=== PATIENT | female | born 2000 | race African-American/Black ===

== ENCOUNTER 2018-09-18 18:16 | Emergency (ER) | payer SELFPAY ==
[2018-09-18] MEDS ORDERED: KETOROLAC 60MG/2ML VIAL IM ONE (19:15)
[2018-09-18 19:55] VITALS: BP 120/77
== END 2018-09-18 19:55 | disposition home or self-care (01) ==
LOC: ER 18:16
DX: S39.012A Strain of muscle, fascia and tendon of lower back, initial encounter (principal); X58.XXXA Exposure to other specified factors, initial encounter; Y93.89 Activity, other specified; Y92.89 Other specified places as the place of occurrence of the external cause; Y99.8 Other external cause status
CPT/HCPCS: 81025; 96372; 99283; J1885

== ENCOUNTER 2019-01-23 19:48 | Emergency (ER) | payer SELFPAY ==
[~2019-01-23] VITALS: Ht 167.6 cm; Wt 84.6 kg
[2019-01-24 01:09] VITALS: BP 111/66
[2019-01-24 01:13] LABS: CLARITY URINE CLOUDY (CLEAR); COLOR URINE YELLOW (YELLOW); KETONES URINE NEGATIVE (NEGATIVE); LEUKOCYTE ESTERASE URINE NEGATIVE (NEGATIVE); NITRITE URINE NEGATIVE (NEGATIVE); OCCULT BLOOD URINE NEGATIVE (NEGATIVE); PH URINE 7.5 (4.5-8.0); PROTEIN URINE NEGATIVE (NEGATIVE); SPECIFIC GRAVITY URINE 1.019 (1.005-1.030); UROBILINOGEN URINE 0.2 E.U./dL (0.2-1.0)
[2019-01-24] MEDS ORDERED: FAMOTIDINE 20MG TABLET PO ONE (01:15)
[2019-01-24] MEDS ORDERED: ONDANSETRON 4MG ODT PO STA (01:15)
[2019-01-24] MEDS ORDERED: MAGNESIUM/ALUMINUM HYDROXIDE/SIMETHICONE 30ML UDC PO STA (01:15)
[2019-01-24 02:28] LABS: CHLORIDE 107 mEq/L (98-107)
[2019-01-24 02:31] LABS: BASOPHILS % 0.3 % (0.0-2.0); EOSINOPHILS % 2.3 % (0.0-5.0); HEMATOCRIT. 38.6 % (36.0-48.0); HEMOGLOBIN. 13.3 g/dL (12.0-16.0); LYMPHOCYTES % 42.1 % (20.0-50.0); MEAN CORPUSCULAR HEMOGLOBIN 30.5 pg (28.0-32.0); MEAN CORPUSCULAR VOLUME 88.7 fL (81.0-99.0); MEAN PLATELET VOLUME 9.7 fl (7.4-10.4); MONOCYTES % 9.5 % (2.0-8.0); NEUTROPHILS % 45.8 % (40.0-76.0); PLATELET 242 x1000/uL (130-400); RED BLOOD CELL COUNT 4.36 mill/uL (4.2-5.4); RED CELL DISTRIBUTION WIDTH 12.5 % (11.6-14.6)
[2019-01-24 02:32] LABS: PROTHROMBIN TIME 10.4 sec (9.6-11.0)
[2019-01-24 02:40] LABS: B-HCG QUANTITATIVE < 1 mIU/mL (<3)
== END 2019-01-24 04:09 | disposition home or self-care (01) ==
LOC: ER 19:48
DX: K29.70 Gastritis, unspecified, without bleeding (principal)
CPT/HCPCS: 36415; 80053; 81003; 81025; 83690; 84702; 85025; 85610; 99284; Q0162; Z7610